=== PATIENT | male | born 1975 | race Caucasian/White ===

== ENCOUNTER 2020-06-15 17:10 | Emergency (ER) | payer OTHER, SELFPAY ==
[2020-06-15 17:12] VITALS: BP 139/89; PULSE 86; RESP 16; TEMP 36.7; O2SAT 98; BMI 29.7
--- NOTE | 2020-06-15 17:34 | EKG12_ITS ---
Test Reason : CP Blood Pressure : / mmHG Vent. Rate : 084 BPM Atrial Rate : 084 BPM P-R Int : 164 ms QRS Dur : 092 ms QT Int : 394 ms P-R-T Axes : 061 024 027 degrees QTc Int : 465 ms Normal sinus rhythm Normal ECG Confirmed by GRIFFIN WISEMAN, MARGARET ([id number]), scientific publications editor LYNDA JOEL ([id number]) on 06/19/2020 11:39:01 A M Referred By: ALKA Confirmed By:CELSA MOYA MD
--- NOTE | 2020-06-15 17:35 | ED.DCSUM_ITS ---
History of Present Illness Chief Complaint: Chest Pain Informant: Patient Narrative: 45-year-old male presents for this evaluation of left-sided chest pain. Patient states that today around 8 AM he began to have discomfort described as an ache in the left side of his chest that seem to cause his left arm to feel different. He states he tried stretching like it was a muscle but it never made a difference. He also noted an ache up to the left side of his neck like his lymph nodes were enlarged. It kept worsening throughout the day until he was driving here to the emergency department. No sweating or vomiting. He states that he is otherwise a very healthy individual. He takes no medications. He states that when he was 18 he had some issues with anxiety presenting with chest pain but he learned to control his anxiety. He states that he has not been working out in recent years but that his 10-year-old son took him for a run last night and he was breathing very hard running up a hill. He did not have any chest pain at that time. He does state that after he got done running he noticed some discomfort in his left scapular region. That was not present today. He states after the run he felt okay and slept okay until this morning. No familial history of early coronary artery disease. He is a non-smoker. No known clotting disorders. Past Medical History - Allergies and Home Meds Allergies/Adverse Reactions: Allergies No Known Allergies Allergy (Verified 06/15/20 17:14) Primary Care Physician: Nemesio Rubin MD [Primary Care Provider] - (call to arrange early follow up to discuss stress testing) Past Medical History: None Surgical History: noncontributory Lives: Spouse/ Significant Other, With Family Smoking Status: Never smoker Drugs: None Review of Systems General: Denies: Chills, Fever, Sweats Eyes: Denies: Visual changes - bilaterally, Diplopia ENT: Denies: Rhinorrhea, Sore throat Cardiovascular: Reports: Chest pain. Denies: Palpitations Respiratory: Denies: Dyspnea, Cough, Dyspnea on exertion Gastrointestinal: Denies: Abdominal pain, Nausea, Vomiting, Diarrhea, Melena, Hematochezia Genitourinary: Denies: Dysuria, Hematuria, Frequency Musculoskeletal: Denies: Back pain, Extremity Pain Skin: Denies: Rash, Wounds Neurological: Reports: Parasthesia. Denies: Headache, Weakness, Numbness Physical Exam Vital Signs/Narrative: Vital Signs Temp Pulse Resp BP Pulse Ox 06/15/20 17:12 98.0 F 86 16 139/89 H 98 Inital Vital Signs reviewed: Yes General: Well nourished, Well developed, No Acute Distress Head: Normocephalic, Atraumatic Eyes: Perrl, EOMI ENT: Moist mucous membranes, No rhinorrhea Neck: Supple, Nontender Cardiovascular: Regular rate, Regular rhythm, No murmurs Respiratory: No distress, CTA bilaterally, Chest nontender Abdomen: Soft, Nontender, Nondistended, Normal bowel sounds Back: Nontender, Normal Inspection Extremities: Nontender, No edema Skin: Normal color, No rash Neurological: Alert, Oriented x3, Cranial nerves II-XII grossly intact, Normal Strength, Normal Sensation Psychological: Normal affect, Normal Mood Diagnostic/Tx/Re-eval Clinical Impression(s) from Imaging Studies Chest X-Ray 06/15/20 17:50 IMPRESSION: No acute cardiopulmonary process identified. Electronically Signed: Larry Matthews MD at 18:27 EST Tel , Service support , Laboratory Last Values WBC 9.8 K/mm3 (4.4-11.0) 06/15/20 17:31 RBC 4.82 M/mm3 (4.6-6.2) 06/15/20 17:31 Hgb 14.7 g/dL (13.0-16.5) 06/15/20 17:31 Hct 43.2 % (40-54) 06/15/20 17:31 MCV 89.6 fL (80-94) 06/15/20 17:31 MCH 30.5 pg (27.0-32.0) 06/15/20 17:31 MCHC 34.0 g/dL (32-36) 06/15/20 17:31 RDW Std Deviation 40.2 fl (35.1-43.9) 06/15/20 17:31 RDW Coeff of Meghna 12.3 % (11.6-14.6) 06/15/20 17:31 Plt Count 327 K/mm3 (150-450) 06/15/20 17:31 MPV 9.3 fl (6.2-12.0) 06/15/20 17: Immature Gran % (Auto) 0.300 % (0.0-0.9) 06/15/20 17: Neut % (Auto) 42.5 % (47-70) L 06/15/20 17: Lymph % (Auto) 25.2 % (19-41) 06/15/20 17: [place] % (Auto) 7.4 % (0-10) 06/15/20 17: Eos % (Auto) 24.3 % (0-5) H 06/15/20 17: Baso % (Auto) 0.3 % (0-1) 06/15/20: Absolute Neuts (auto) 4.2 X10^3/uL (2.0-7.7) 06/15/20 17: Absolute Lymphs (auto) 2.47 X10^3/uL (0.83-4.51) 06/15/20: Nucleated RBC % 0 % (0-5) 06/15/20 17: D-Dimer Quant (PE/DVT) <= 0.27 FEU/ug/m (0.27-0.49) 06/15/20 17:31 Sodium 141 mmol/L (136-145) 06/15/20 17: Potassium 3.6 mmol/L (3.5-5.1) 06/15/20 17: Chloride 108 mmol/L (98-107) H 06/15/20 17: Carbon Dioxide 25.0 mmol/L (21.0-32.0) 06/15/20 17: Anion Gap 8 (5-15) 06/15/20 17: BUN 26 mg/dL (7-18) H 06/15/20 17:31 Creatinine 0.91 mg/dL (0.70-1.30) 06/15/20 17: Estim Creat Clear Calc 95.84 ml/min 06/15/20 17:31 Est GFR (MDRD) Af Amer 115 mL/min (>60) 06/15/20 17:31 Est GFR (MDRD) Non-Af 95 mL/min (>60) 06/15/20 17:31 BUN/Creatinine Ratio 28.5 RATIO (10-20) H 06/15/20 17:31 Glucose 99 mg/dL (74-106) 06/15/20 17:31 Calcium 8.7 mg/dL (8.5-10.1) 06/15/20 17:31 Troponin I < 0.015 ng/mL (<0.045) 06/15/20 17:31 - EKG Initial EKG Interpretation: Sinus Rhythm - EKG demonstrates a normal sinus rhythm at a rate of 84. There are no concerning features of ACS or ectopy noted. - Medical Decision Making My interpretation of the single view portable chest x-ray is no acute process normal mediastinal silhouette. Patient's D-dimer and troponin are negative. The troponin represents constant symptoms since about 830 this morning until approximately 1700 hrs. His heart score is 2. He received one-point for moderately suspicious history and one- point for being 45 years old. At this point in following the heart pathway the patient can be discharged home. He is instructed to follow-up with his primary care doctor to talk about cardiac stress testing. He is to return if worsening or concerns. ED Disposition - Plan for ED Patient: Disposition: Home or Assisted Living Diagnosis: Chest pain Instructions: ED Chest Pain, Uncertain Cause Referrals: Nemesio Rubin MD [Primary Care Provider] - (call to arrange early follow up to discuss stress testing)
[2020-06-15 17:42] LABS: Absolute Lymphocyte Count 2.47 X10^3/uL (0.83-4.51); Absolute Neutrophil Count 4.2 X10^3/uL (2.0-7.7); Basophil# 0.03 X10^3/uL; Basophil% 0.3 % (0-1); Eosinophils% 24.3 % (0-5); Hematocrit 43.2 % (40-54); Hemoglobin 14.7 g/dL (13.0-16.5); Lymphocyte # 2.47 X10^3/ul (4.0); Lymphocyte % 25.2 % (19-41); Mean Corpuscular Hgb 30.5 pg (27.0-32.0); Mean Corpuscular Volume 89.6 fL (80-94); Mean Platelet Vol. 9.3 fl (6.2-12.0); Monocyte# 0.73 X10^3/uL; Monocyte% 7.4 % (0-10); NRBC Flagged by Analyzer 0 % (0-5); Neutrophil # 4.16 X10^3/uL (2.7-7.7); Neutrophil % 42.5 % (47-70); POSITIVE DIFFERENTIAL YES; Platelet Count 327 K/mm3 (150-450); RBC Distribution Width CV 12.3 % (11.6-14.6); RBC Distribution Width SD 40.2 fl (35.1-43.9); Red Blood Count 4.82 M/mm3 (4.6-6.2); White Blood Count 9.8 K/mm3 (4.4-11.0)
--- NOTE | 2020-06-15 17:50 | RAD_ITS ---
STUDY: X-RAY CHEST REASON FOR EXAM: Male, 45 years old. Chest pain TECHNIQUE: Single frontal view of the chest. COMPARISON: None. FINDINGS: Cardiac silhouette unremarkable. Pulmonary vascularity unremarkable. Aorta unremarkable. No focal airspace opacities. No pleural effusions. Upper abdomen unremarkable. Osseous structures intact. No pneumothorax. RAD/Chest 1 View (Portable) IMPRESSION: No acute cardiopulmonary process identified. Electronically Signed: Larry Matthews MD at 18:27 EST Tel , Service support ,
[2020-06-15 17:59] LABS: Anion Gap 8 (5-15); BUN 26 mg/dL (7-18); BUN/Creat Ratio 28.5 RATIO (10-20); Calcium,Total 8.7 mg/dL (8.5-10.1); Chloride 108 mmol/L (98-107); Creatinine, Serum 0.91 mg/dL (0.70-1.30); D-Dimer Quantitative (DVT/PE) <= 0.27 FEU/ug/m (0.27-0.49); EST Glomerular Filtration Rate 95 mL/min (>60); Est Glom Filt Rate - Afr Amer 115 mL/min (>60); Estimated Creatinine Clearance 95.84 ml/min; Glucose 99 mg/dL (74-106); Potassium 3.6 mmol/L (3.5-5.1); Sodium Level 141 mmol/L (136-145)
[2020-06-15 18:07] LABS: Differential Indicated SCAN CRITERIA MET; Eosinophil# 2.38 X10^3/uL
[2020-06-15 18:50] VITALS: BP 128/85; PULSE 89; RESP 15; O2SAT 95
[2020-06-16 11:38] LABS: Pathologist Review Reviewed
== END 2020-06-15 18:53 | disposition home or self-care (01) ==
PROVIDERS: Emergency Provider Emergency Medicine; PCP Family Medicine
DX: R07.89 Other chest pain (principal)
CPT/HCPCS: 71045; 80048; 84484; 85025; 85379; 93005; 99284